=== PATIENT | female | born 1970 | race Caucasian/White ===

== ENCOUNTER 2025-01-14 09:12 | Day surgery (SDC) | payer BC ==
[2025-01-12 11:15] VITALS: BMI 24.5
[2025-01-14 09:26] VITALS: RESP 20
[2025-01-14 11:23] VITALS: TEMP 97.2
[2025-01-14 11:29] VITALS: BP 103/60; PULSE 66
== END 2025-01-14 11:45 | disposition home or self-care (01) ==
LOC: FASU-ENDO 09:12
PROVIDERS: ATTEND Internal Medicine Gastroenterology
PROC: 0DB68ZX Excision of Stomach, Via Natural or Artificial Opening Endoscopic, Diagnostic (ICD-10-PCS; 2025-01-14)
PROC: 0DB58ZX Excision of Esophagus, Via Natural or Artificial Opening Endoscopic, Diagnostic (ICD-10-PCS; 2025-01-14)
PROC: 0DB98ZX Excision of Duodenum, Via Natural or Artificial Opening Endoscopic, Diagnostic (ICD-10-PCS; principal; 2025-01-14 10:23)
DX: R10.13 Epigastric pain (principal); K31.89 Other diseases of stomach and duodenum
CPT/HCPCS: 88305-TC; 88342-TC